=== PATIENT | male | born 2000 | race Caucasian/White ===

== ENCOUNTER 2018-10-02 06:56 | Day surgery (SDC) | payer BC ==
[~2018-10-02 06:56] MED LIST: Dextrose 5%-0.45% NaCl 1,000 ML IV SCH; Midazolam 1 MG/ML 2 ML SDV ONE; fentaNYL 100 MCG/2 ML SDV ONE
[2018-10-02] MEDS ORDERED: Midazolam 1 MG/ML 2 ML SDV IV ONE ×3 (06:57→07:52)
[2018-10-02] MEDS ORDERED: fentaNYL 100 MCG/2 ML SDV IV ONE ×3 (06:57→07:51)
--- NOTE | 2018-10-02 12:38 | OR ---
DATE: 10/02/2018 PROCEDURE PERFORMED: Esophagogastroduodenoscopy and multiple pinch biopsies. INSTRUMENT USED: [id number]-HQ190 Olympus video panendoscope. PREMEDICATIONS: No oral or topical anesthesia used. Fentanyl 100 mcg intravenous, Versed 2 mg intravenous. The procedure was done under pulse oximetry, BP recording, and rail layer. INDICATION: The patient with known Crohn disease, on therapy with recent persistent nausea and weight loss, unexplained and not responsive to medical measures. Esophagogastroduodenoscopy is performed for detection of any active erosive lesions, H. pylori status to be determined, endoscopic hemostasis therapy if needed. DESCRIPTION OF PROCEDURE: The scope was passed with ease. Adequate visualization of the esophagus was made from proximal to distal areas. No upper esophageal lesions identified. No distal esophageal stricture. No uphill or downhill esophageal varices. No Nicole-Nino tear. Grade A erosive changes were noted by Dupage criteria. No esophageal polyp or tumor mass identified. Z-line was seen at around 40 cm distal to the oral verge, configuration consistent with grade 1 ZAP classification. No proximal gastric varices noted. Gastric fundus examination by retroflexion showed no polypoid lesions. Some patchy area of the proximal gastric body mucosa was noted. No gastric ulcer, malignant mass, or vascular ectasia identified. Duodenal bulb showed no ulcer. Visualized second part of the duodenum was unremarkable. Multiple pinch biopsies were taken from the normal-appearing mucosa of the second part of the duodenum, sent for histopathology. Multiple pinch biopsies were also obtained from the gastric antrum and proximal body and sent for PyloriTek test for H. pylori and histopathology. No bleeding was noted from any of the visualized areas at the completion of examination. Photographs were taken of the duodenum, gastric antrum, fundus, and distal esophagus. IMPRESSION: Grade A gastroesophageal reflux disease. The patient tolerated the procedure well. [facility] /[id number]
== END 2018-10-02 09:58 | disposition home or self-care (01) ==
LOC: DL.ENDO 06:56
PROVIDERS: ATTEND Internal Medicine Gastroenterology
DX: K29.50 Unspecified chronic gastritis without bleeding (principal); K21.0 Gastro-esophageal reflux disease with esophagitis; K50.90 Crohn's disease, unspecified, without complications; R63.4 Abnormal weight loss; Z68.20 Body mass index [BMI] 20.0-20.9, adult
CPT/HCPCS: 43239; 87077; J2250; J3010; J7042